=== PATIENT | male | born 1985 | race Caucasian/White ===

== ENCOUNTER 2021-02-25 21:18 | Emergency (ER) | payer OTHER ==
[~2021-02-25] VITALS: Ht 175.3 cm; Wt 77.1 kg
[2021-02-25 23:20] LABS: ABSOLUTE NEUTROPHILS 2.9 thou/uL (1.4-8.2); EOSINOPHILS 1.6 % (0.0-3.0); HEMATOCRIT 39.8 % (42.0-52.0); HEMOGLOBIN 13.4 gm/dL (14.0-18.0); LYMPHOCYTES 15.8 % (24.0-44.0); MCH 30.9 pg (26.0-34.0); MCHC 33.6 g/dL (28.0-37.0); MONOCYTES 13.9 % (1.0-8.0); PLATELET COUNT 296 thou/uL (150-400); POLYS 67.7 % (36.0-66.0); RBC 4.32 mil/uL (4.50-6.00); RDW 13.6 % (10.5-14.5); WBC 4.3 thou/uL (4.0-11.0)
[2021-02-25 23:22] LABS: CALCIUM 9.2 mg/dL (8.5-10.1); CREATININE 0.7 mg/dL (0.7-1.3); POTASSIUM 4.2 mmol/L (3.5-5.1)
[2021-02-25 23:27] LABS: URINE BILIRUBIN NEGATIVE (Negative); URINE BLOOD TRACE (Negative); URINE CLARITY CLEAR; URINE COLOR YELLOW; URINE GLUCOSE-RANDOM* NEGATIVE (Negative); URINE KETONES NEGATIVE (Negative); URINE LEUKOCYTES-REFLEX NEGATIVE (Negative); URINE NITRITE-REFLEX NEGATIVE (Negative); URINE PROTEIN (DIPSTICK) NEGATIVE (Negative); URINE SPECIFIC GRAVITY 1.015 (1.005-1.035); URINE UROBILINOGEN 0.2 E.U./dl (0.2-1.0)
[2021-02-25 23:33] LABS: ALBUMIN 3.7 g/dL (3.4-5.0); TOTAL BILIRUBIN 0.4 mg/dL (0.2-1.0)
[2021-02-26 01:03] VITALS: BP 140/99
--- NOTE | 2021-02-26 07:50 | EKG ---
[address] [place] [address] ELECTROCARDIOGRAM REPORT Name: WALTERNAUN CONSTANZA SOTO Room #: DEP Catina#: [id number] Admission: 02/25/21 Attend Phys: Discharge: 02/26/21 Date of : 85 Report #: [id number] [facility] ED Test Date: 2021-02-25 Test Time: 23:47:32 Pat Name: NAUN WATSON Department: Room: Gender: M [employer] Work[employer]: mary jo : 1985 Requested By: Berenice Tovar Order Number: [id number] MD: Jayson Stroud Measurements Intervals [place] Rate: 75 P: 22 HI: 150 QRS: 7 QRSD: 84 T: -13 QT: 372 QTc: 416 Interpretive Statements Sinus rhythm Left ventricular hypertrophy Borderline T abnormalities, inferior leads No previous ECG available for comparison Electronically Signed On 02-26-2021 7:50:10 PROCEDURAL NURSE by Jayosn Stroud [email or web address] <ELECTRONICALLY SIGNED> By: Jayson Stroud MD, [facility] 02/26/21 0750 [id number] Jayson Stroud MD, FACC /EPI
== END 2021-02-26 01:14 | disposition home or self-care (01) ==
LOC: ER 21:18
PROVIDERS: Emergency Medicine
DX: R11.2 Nausea with vomiting, unspecified (principal); R19.7 Diarrhea, unspecified; J45.909 Unspecified asthma, uncomplicated; F12.90 Cannabis use, unspecified, uncomplicated